=== PATIENT | female | born 1950 | race Caucasian/White ===

== ENCOUNTER 2017-08-31 14:41 | Emergency (ER) | payer OTHER ==
[~2017-08-31] VITALS: Ht 172.7 cm; Wt 57.6 kg
[2017-08-31 15:26] LABS: HEMATOCRIT 35.6 % (36.0-46.0); HEMOGLOBIN 12.2 G/DL (11.9-15.5); MCHC 34.3 G/DL (30.0-36.0); MCV 93.4 FL (83-99); PLATELET COUNT 237 K/uL (156-360); RBC DIS.WIDTH-CV 12.3 % (11.8-14.6); RBC DIS.WIDTH-SD 42.5 % (39-53); RED BLOOD COUNT 3.81 M/uL (3.80-5.20); WHITE BLOOD COUNT 4.9 K/uL (4.1-10.2)
[2017-08-31 15:43] LABS: CHLORIDE 102 mEq/L (99-109); POTASSIUM 3.6 mEq/L (3.7-5.4); SODIUM 139 mEq/L (136-147)
[2017-08-31 15:45] LABS: GLUCOSE 99 mg/dL (70-99)
[2017-08-31 15:48] LABS: TROP-I INTERPRETATION NEGATIVE; TROPONIN-I < 0.01 ng/mL (0.0-0.30)
[2017-08-31 15:49] LABS: CREATININE 0.7 mg/dL (0.6-1.3); GFR ESTIMATE (CALCULATED) > 59 mL/min/
[2017-08-31 15:50] LABS: UREA NITROGEN (BUN) 18 mg/dL (9-23)
[2017-08-31] MEDS ORDERED: MOTRIN800 MG PO (17:49)
[2017-08-31] MEDS ORDERED: FLEXERIL10 MG PO (17:49)
[2017-08-31 18:30] VITALS: BP 135/81
== END 2017-08-31 18:31 | disposition home or self-care (01) ==
LOC: EME 14:41
PROVIDERS: Nurse Practitioner Family
DX: S00.03XA Contusion of scalp, initial encounter (principal); S20.212A Contusion of left front wall of thorax, initial encounter; S00.83XA Contusion of other part of head, initial encounter; V49.40XA Driver injured in collision with unspecified motor vehicles in traffic accident, initial encounter; Y92.410 Unspecified street and highway as the place of occurrence of the external cause; F32.9 Major depressive disorder, single episode, unspecified; I10 Essential (primary) hypertension; Z88.0 Allergy status to penicillin; Z87.891 Personal history of nicotine dependence
CPT/HCPCS: 70450; 71046; 80048; 84484; 85027; 93005; 99281; 99284